=== PATIENT | male | born 1980 | race Caucasian/White ===

== ENCOUNTER → 2018-11-07 07:59 | Outpatient (CLI) | payer OTHER, SELFPAY ==
--- NOTE | 2018-11-07 | DI.ECHO.S_ITS ---
[facility]---------+ [facility] +---------+ : : [address] : [address] [address] : : : : [id number] : : : : Phone: [phone]+ Echocardiogram Report + + :Name: AUSTIN CHAVIRA Study Date: 11/07/2018 Height: 72 in : :[facility] Exam Location: [facility] Weight: 200 lb : : Gender: Male BSA: 2.1 m2 : :: 1980 Age: 38 yrs BP: 120/90 mmHg: :Reason For Study: History of A-Fib/ History of Syncope : : Performed By: Elida Page : :Referring: JUANITA SPICER : + + Interpretation Summary The left ventricle is normal in size, wall thickness, and systolic function without any focal wall motion abnormalities. The ejection fraction is estimated to be 55-60%. The right ventricle is normal in size and function. No significant valvular pathology seen. Procedure: A two-dimensional transthoracic echocardiogram with color flow and Doppler was performed. The study quality was technically good. There is no prior echocardiogram noted for this patient. The patient was in sinus bradycardia with heart rates between 50-57 bpm during the exam. Left Ventricle: The left ventricle is normal in size, wall thickness, and systolic function without any focal wall motion abnormalities. There is no thrombus. The ejection fraction is estimated to be 55-60%. There are no focal wall motion abnormalities. Diastolic parameters suggest probable normal left ventricular diastolic function and normal filling pressures. Right Ventricle: The right ventricle is normal in size and function. Atria: The left atrial size is normal. Right atrial size is normal. There is no Doppler evidence for an interatrial shunt. Mitral Valve: The mitral valve is normal in structure and function. There is trace mitral regurgitation. Aortic Valve: The aortic valve is trileaflet. The aortic valve opens well. There is no aortic valve stenosis. There is trace aortic regurgitation. Tricuspid Valve: The tricuspid valve is normal in structure and function. There is trace tricuspid regurgitation. The right ventricular systolic pressure is estimated to be at least 21 mmHg based on an estimated right atrial pressure of 3 mm Hg. Pulmonic Valve: The pulmonic valve is not well seen, but is grossly normal. There is trace pulmonic regurgitation. Great Vessels: The aortic root is normal size. The ascending aorta is normal in size. The aortic arch could not be visualized. The pulmonary artery is not well visualized, but is probably normal size. The IVC is of normal diameter and collapses greater than 50% with a sniff. This suggests a low right atrial pressure of 3 mm Hg. Pericardium/ Pleura There is no pericardial effusion. There is no pleural effusion. MMode/2D Measurements & Calculations LVIDd: 5.4 cm LVOT diam: 2.3 cm LVIDs: 3.8 cm Ao root diam: 3.5 cm FS: 30.4 % asc Aorta Diam: 3.3 cm IVSd: 0.79 cm LVPWd: 0.70 cm LV alvarado. diameter/BSA (cm/m^2): 2.5 LV sys. diameter/BSA (cm/m^2): 1.8 LA A2 area: 20.8 cm2 RA long axis: 5.1 cm LA A4 area: 20.6 cm2 RA area: 20.9 cm2 LA length (vol): 6.0 cm RA vol: 72.8 ml LA vol: 60.6 ml RA : 34.2 ml/m2 LA vol index: 28.5 ml/m2 IVC diam: 2.0 cm RVD1 (basal): 4.3 cm TAPSE: 2.2 cm Doppler Measurements & Calculations Ao V2 max: 109.3 cm/sec LVOT Max Jim: 81.1 cm/sec Ao V2 mean: 78.3 cm/sec LV V1 max P.6 mmHg Ao max P.8 mmHg LV V1 VTI: 17.3 cm Ao mean P.7 mmHg DAVID(I,D): 2.9 cm2 Ao V2 VTI: 23.9 cm DAVID(V,D): 3.0 cm2 sev ratio: 0.72 DAVID indexed to BSA (cm^2/m^2): 1.4 MV E max jim: 82.1 cm/sec TR max jim: 211.6 cm/sec MV A max jim: 38.3 cm/sec TR max P.9 mmHg MV E/A: 2.1 PA V2 max: 68.2 cm/sec Med Peak E' Jim: 7.5 cm/sec PA V2 mean: 50.5 cm/sec E/E' med: 11.0 PA mean P.1 mmHg Lat Peak E' Jim: 12.7 cm/sec PA Accel Time: 0.14 sec E/E' lat: 6.4 E/e' average: 8.7 MV dec time: 0.26 sec MV P1/2t: 76.2 msec MV P1/2t max jim: 81.7 cm/sec SV(LVOT): 69.7 ml MVA(P1/2t): 2.9 cm2 Reading Physician:HANSA
== END ==
PROVIDERS: Visit Provider Physician Assistant
DX: I51.9 Heart disease, unspecified (principal); I48.91 Unspecified atrial fibrillation; R55 Syncope and collapse
CPT/HCPCS: 93306

== ENCOUNTER 2019-06-22 19:16 | Emergency (ER) | payer OTHER, SELFPAY ==
[2019-06-22 19:24] VITALS: BP 142/84; PULSE 107; RESP 14; TEMP 36.7; O2SAT 97; BMI 28.2
--- NOTE | 2019-06-22 19:51 | ED.ARRPALP ---
HPI - Arrhythmia/Palpitations General Chief Complaint: Arrhythmia/Palpitations Stated Complaint: states in A Fib Time Seen by Provider: 06/22/19 19:51 Source: family Mode of arrival: Ambulatory Limitations: no limitations History of Present Illness HPI narrative: Otherwise healthy 38-year-old male. States he has had prior history of atrial fibrillation. States that in his 3 prior episodes he has been cardioverted 1 time and converted back to sinus rhythm with medications the 2 other times. States this evening after exercising he noticed that his heart rate was elevated. He also felt like it was irregular. Was not having any chest pain or shortness of breath. Was having some palpitations at the time. Came into the emergency department for evaluation. The time my evaluation patient was not having any symptoms. Related Data Allergies Allergy/AdvReac Type Severity Reaction Status Date / Time No Known Drug Allergies Allergy Verified 06/22/19 19:27 Review of Systems Constitutional Constitutional: Denies fever(s) Cardiovascular Cardiovascular: Denies chest pain, Reports palpitations and Denies dyspnea Respiratory Respiratory: Denies cough and Denies dyspnea Gastrointestinal Gastrointestinal: Denies abdominal pain, Denies nausea and Denies vomiting Musculoskeletal Musculoskeletal: Denies arthralgias Integumentary/Breasts Skin/Breast: Denies rash Endocrine Endocrine: Reports palpitations Hematologic/Lymphatic Hematologic/Lymphatic: Denies easy bleeding and Denies easy bruising Patient History Medical History Atrial fibrillation (Acute) Social History Smoking Status: Unknown if ever smoked Smoking Status: Unknown if ever smoked alcohol intake frequency: holidays/special occasions only Substance Use Type: does not use Exam Initial Vital Signs Initial Vital Signs: Vital Signs Temperature 98.0 F 06/22/19 19:24 Pulse Rate 107 H 06/22/19 19:24 Respiratory Rate 14 06/22/19 19:24 Blood Pressure 142/84 H 06/22/19 19:24 Pulse Oximetry 97 06/22/19 19:24 Const General: cooperative and comfortable Limitations: mental status not altered HENMT Head: normal to inspection and normocephalic Resp Effort & Inspection: normal respiratory effort Auscultation: clear to auscultation bilaterally Cardio Rate: regular rate Rhythm: regular rhythm Pulses: radial pulses present Skin Lesions: no lesions Rashes: no rashes Neuro General: alert and awake Cognition: normal cognition Speech: speech normal Extrem General: normal to inspection and capillary refill normal Course Vital Signs Vital signs: Vital Signs - 8 hr 06/22/19 19:24 06/22/19 20:17 Temperature 98.0 F Pulse Rate 107 H 87 Respiratory Rate 14 15 Blood Pressure 142/84 H 145/98 H Pulse Oximetry 97 98 MDM - Arrhythmia/Palpitations ECG Data Attestation: I personally reviewed and interpreted this ECG as follows: Prior ECG tracings: not available for review Interpretation: Sinus rhythm Ventricular rate 90 Normal axis Normal QRS Normal QTC No ST T wave changes MDM Narrative Medical decision making narrative: Patient is asymptomatic time of evaluation. He has sinus rhythm on his EKG. Had a long discussion with him regarding his symptoms. Informed him that he potentially could have been in atrial fibrillation earlier today when he is feeling the symptoms but he is not in atrial fibrillation now. Expressed understanding of this. He was given return precautions and follow-up instructions. He expressed understanding and agreement plan. Discharge Plan Departure Patient Disposition: Home Clinical Impression: Palpitations Discharge Date/Time: 06/22/19 20:17 Instructions: DI for Arrhythmias Activity Restrictions/Additional Instructions: I do recommend that you contact your primary provider about indications for a Holter monitor. Return to the emergency department for any new or worsening symptoms. You have no restrictions on your activity.
[2019-06-22 20:17] VITALS: BP 145/98; PULSE 87; RESP 15; O2SAT 98
== END 2019-06-22 20:17 | disposition home or self-care (01) ==
PROVIDERS: Emergency Provider Emergency Medicine
DX: R00.2 Palpitations (principal); I48.91 Unspecified atrial fibrillation
CPT/HCPCS: 93005; 99282; 99283